=== PATIENT | female | born 1975 | race Caucasian/White ===

== ENCOUNTER 2016-08-29 09:51 | Day surgery (SDC) | payer OTHER ==
[2016-08-29] VITALS (9 sets, daily range): BP systolic 111–127; BP diastolic 65–78; PULSE 94–100; RESP 14–23; Ht 149.9 cm; Wt 79.0 kg
[~2016-08-29] VITALS: Ht 149.9 cm; Wt 79.0 kg
[~2016-08-29 09:51] MED LIST: CEFAZOLIN 2 GM/50 ML (PMX) 50 ML IVPB SCH; SOD CHLORIDE 0.9% 1,000 ML IV SCH
[2016-08-29 12:31] LABS: ADD SCAN DIFF NO
[2016-08-29 12:35] LABS: BASOPHILS % 0.3 % (0.0-2.0); EOSINOPHILS # 0.1 10^3/ul (0.0-0.5); EOSINOPHILS % 0.8 % (0.0-7.0); HEMOGLOBIN 11.1 g/dl (12.0-16.0); LYMPHOCYTES # 1.4 10^3/ul (0.8-2.9); LYMPHOCYTES % 20.5 % (15.0-51.0); MEAN CORPUSCULAR HEMOGLOBIN 27.5 pg (29.0-33.0); MEAN CORPUSCULAR HGB CONC 32.6 g/dl (32.0-37.0); MEAN CORPUSCULAR VOLUME 84.4 fl (82.0-101.0); MEAN PLATELET VOLUME 9.4 fl (7.4-10.4); MONOCYTE # 0.5 10^3/ul (0.3-0.9); MONOCYTES % 7.8 % (0.0-11.0); NEUTROPHIL # 4.7 10^3/ul (1.6-7.5); NEUTROPHILS % 70.1 % (39.0-77.0); PLATELET COUNT 306 10^3/UL (140-415); RED BLOOD COUNT 4.03 10^6/ul (4.20-5.40); RED CELL DISTRIBUTION WIDTH 13.5 % (11.5-14.5); WHITE BLOOD COUNT 6.6 10^3/ul (4.8-10.8)
[2016-08-29 12:48] LABS: ALBUMIN 4.1 g/dl (3.3-4.9)
[2016-08-29 12:50] LABS: INR 0.94; PROTIME 12.6 Sec (12.2-14.2)
[2016-08-29 12:51] LABS: BILIRUBIN,INDIRECT 0.4 mg/dl (0-1.1); BILIRUBIN,TOTAL 0.4 mg/dl (0.2-1.3); CREATININE 0.53 mg/dl (0.44-1.00); POTASSIUM 3.4 mmol/L (3.5-5.1)
[2016-08-29 12:52] LABS: ALBUMIN/GLOBULIN RATIO 0.97; TOTAL PROTEIN 8.3 g/dl (6.1-8.1)
[2016-08-29 12:55] LABS: CALCIUM 9.2 mg/dl (8.4-10.2)
[2016-08-29 13:12] LABS: PARTIAL THROMBOPLASTIN TIME 24.5 Sec (25.0-35.0)
[2016-08-29] MEDS ORDERED: FENTAnyl 50 MCG/ML VIAL ONE (13:18)
[2016-08-29] MEDS ORDERED: MIDAZOLAM 1 MG/ML 2 ML INJ ONE (13:19)
[2016-08-29] MEDS ORDERED: CEFAZOLIN 1 GM INJ ONE (13:20)
[2016-08-29] MEDS ORDERED: LIDOCAINE 1% (MPF) 30 ML INJ ONE (13:47)
[2016-08-29] MEDS ORDERED: LIDOCAINE 0.5%/EPI (MDV) 50 ML INJ ONE (13:47)
[2016-08-29] MEDS ORDERED: MEPERIDINE 25 MG INJ IV PRN (14:00)
[2016-08-29] MEDS ORDERED: ONDANSETRON 4 MG INJ IV PRN (14:00)
[2016-08-29] MEDS ORDERED: FENTAnyl 50 MCG/ML VIAL IV PRN ×2 (14:00)
[2016-08-29] MEDS ORDERED: HYDROmorphONE (0.2 MG/ML) 10ML SYG IV PRN ×3 (14:00)
--- NOTE | 2016-08-29 15:21 | OPR ---
DATE OF OPERATION: 08/29/2016 PREOPERATIVE DIAGNOSIS: History of left breast cancer, need for left breast skin biopsy to rule out recurrence. POSTOPERATIVE DIAGNOSIS: History of left breast cancer, need for left breast skin biopsy to rule ou t recurrence. OPERATION PERFORMED: Skin biopsy, left breast. ANESTHESIA: Monitored anesthesia care with local anesthetic. ANESTHESIOLOGIST: Dr. Maddox SURGEON: Kilo Stevenson MD BUSINESS SERVICES SALES REPRESENTATIVE: None. INDICATIONS FOR PROCEDURE: The patient is a 40-year-old female who was previously treated for relat ively large left breast cancer. She presented with skin changes, and the decision was made to perfo rm a skin biopsy to rule out recurrence on the skin. She consented and was scheduled for surgery. DESCRIPTION OF PROCEDURE: The patient was brought to the operating theater, placed under IV sedatio n. The left breast was prepped and draped in the usual sterile fashion. The suspicious area at harry roximately the 5 o'clock location adjacent to the nipple areolar border was infiltrated with 1% lido cornelio local anesthetic. A punch biopsy was then used to take a full thickness punch biopsy of the s kin in this region. The specimen was sent for permanent pathologic analysis. Two 5-0 PDS sutures w ere then used to close the small incision in interrupted fashion, and Dermabond was applied. The pa tient tolerated the procedure well. The estimated blood loss was 2 mL. There were no complications , and the patient was transported in stable condition to the recovery room. Dictated By: KILO STEVENSON MD TL/NTS Conf#: [id number] DID#: [id number]
== END 2016-08-29 15:23 | disposition home or self-care (01) ==
LOC: SDS 09:51
PROVIDERS: ATTEND Surgery Surgical Oncology
DX: Z85.3 Personal history of malignant neoplasm of breast (principal); E66.01 Morbid (severe) obesity due to excess calories; Z68.35 Body mass index [BMI] 35.0-35.9, adult
CPT/HCPCS: 19101; 80053; 85025; 85610; 85730; 88305; J0690; J2250; J3010; Z7512; Z7610

== ENCOUNTER → 2017-11-26 | Outpatient (CLI) | END | disposition home or self-care (01) ==

== ENCOUNTER 2018-03-12 17:57 | Inpatient (IN) | END 2018-03-15 20:20 | disposition home or self-care (01) | DRG 597 ==